=== PATIENT | female | born 1955 | race Caucasian/White ===

== ENCOUNTER → 2020-11-17 06:55 | Outpatient (CLI) | payer MEDICARE, SELFPAY ==
--- NOTE | ~2020-11-17 | MR_ITS ---
EXAMINATION: MR shoulder RT wo con DATE: 11/17/2020 07:34 INDICATION: Shoulder weakness and pain TECHNIQUE: Magnetic resonance imaging (MRI) of the right shoulder was performed without intravenous c ontrast. Sequences included axial PD-weighted FS FSE, coronal oblique PD-weighted FS FSE, coronal obl ique T2-weighted FS FSE, sagittal PD-weighted FS FSE, and sagittal T1-weighted SE. COMPARISON: None. FINDINGS: Coracoacromial arch: The acromion undersurface is curved in morphology (type II). The coracoacromial ligament is normal. M ild acromioclavicular osteoarthritis. Rotator cuff: Moderate infraspinatus and mild supraspinatus tendinopathy with partial-thickness articular sided tea r along the superior facet footplate of the supraspinatus involving up to one half of two thirds of t he tendon thickness. The tear measures approximately 12 mm AP and with some retraction of the torn ar ticular sided fibers resulting in attenuation of the distal 1 cm of the tendon. The tear extends ante riorly across the rotator cuff interval to involve the majority of the lesser tuberosity footplate of the subscapularis tendon. The inferior most muscular attachment of the subscapularis remains intact as well as small portion of the articular side of the tendon which remains attached to the medial rim of the lesser tuberosity. The bursal side of the tendon remains intact and contiguous with the intac t transverse humeral ligament extending across the intertubercular groove. The long head of the bicep s tendon is subluxed across the lesser tuberosity tear defect and an additional 1 cm medially along a longitudinal split tear plane positioned between the intact bursal and articular sided fibers. The s plit tear extends approximately 2.5 cm medially from the midpoint of the lesser tuberosity. There is thickening of the crescentic rotator cable. The teres minor tendon is normal. There is mild to modera te fatty atrophy of the subscapularis muscle belly. Biceps tendon, glenoid labrum and glenohumeral cartilage: Moderate tendinopathy and longitudinal split tearing of the subluxed long head biceps tendon. The ant erior to anteroinferior glenoid labrum is thickened with irregular intrasubstance increased signal co nsistent with degenerative tearing. There is mild cystic change along the underlying anterior rim of the glenoid at approximately the 4:00 position. Likely small tear at the posterior superior glenoid l abrum. There is mild partial-thickness cartilage loss along the glenoid and humeral head with relativ michael smooth chondral surface. Small marginal osteophytes along the inferior humeral head. Fluid: Physiologic amount of fluid in the glenohumeral joint and biceps tendon sheath. No loose osteochondra l bodies. Fluid in the subacromial/subdeltoid bursa consistent with moderate bursitis. Bones: Bone alignment is normal. No fracture or pathologic marrow replacing process. Additional cystic mccormick e at the greater tuberosity underlying the posterior extent of the supraspinatus tendon tear. IMPRESSION: 1. Mild to moderate rotator cuff tendinopathy with partial-thickness articular sided tear of the dist al supraspinatus tendon. 2. Tear involving the majority of the lesser tuberosity footplate of the subscapularis tendon with me dially projecting split tear between the remaining intact articular and bursal sided portion of the t endon. 3. Secondary medial subluxation of the long head biceps tendon across the lesser tuberosity tear defe ct with moderate tendinopathy and longitudinal split tearing of the long head biceps tendon. 4. Mild glenohumeral osteoarthritis with prominent degenerative tearing of the anterior to anteroinfe rior labrum and likely mild tear at the posterior superior labrum. 5. Mild acromion clavicular osteoarthritis with moderate underlying subacromial/subdeltoid bursitis.
== END ==
PROVIDERS: Visit Provider Orthopaedic Surgery
DX: M19.011 Primary osteoarthritis, right shoulder (principal)
CPT/HCPCS: 73221

== ENCOUNTER 2021-01-22 14:10 | Outpatient (CLI) | payer MEDICARE, SELFPAY ==
--- NOTE | 2021-01-22 14:15 | ECG_ITS ---
Measurements Intervals [place] Rate: 72 P: 62 OR: 169 QRS: 36 QRSD: 88 T: 50 QT: 391 QTc: 429 Interpretive Statements SINUS RHYTHM BASELINE ARTIFACT- I, II, III, AVR, AVL,A VF, V5 NORMAL ECG Electronically Signed On 01-22-2021 14:52:29 CDT by Candelario Steele D.O.
== END 2021-01-22 14:11 | disposition home or self-care (01) ==
PROVIDERS: PCP Family Medicine; Visit Provider Orthopaedic Surgery
DX: M75.101 Unspecified rotator cuff tear or rupture of right shoulder, not specified as traumatic (principal); E78.2 Mixed hyperlipidemia; Z01.818 Encounter for other preprocedural examination
CPT/HCPCS: 87070; 87077; 87147; 87181; 87186; 93005

== ENCOUNTER → 2021-01-29 05:09 | Outpatient (CLI) | payer MEDICARE, SELFPAY ==
[2021-01-29 19:22] LABS: SARS-CoV-2 RNA PCR Negative
== END ==
PROVIDERS: PCP Family Medicine; Visit Provider Orthopaedic Surgery
DX: Z01.812 Encounter for preprocedural laboratory examination (principal); Z20.822 Contact with and (suspected) exposure to COVID-19
CPT/HCPCS: C9803; U0003; U0005

== ENCOUNTER 2021-02-01 01:55 | Day surgery (SDC) | payer MEDICARE, SELFPAY ==
[2021-01-22 13:45] VITALS: BMI 24.0
--- NOTE | 2021-01-29 07:55 | PM.IMHP ---
H&P: HPI History of Present Illness Date/Time: 01/29/21 07:55 65-year-old female patient presents today for arthroscopy of her right shoulder with open rotator cuff repair and possible biceps tenodesis. She started having symptoms in her shoulder last fall. 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 She started having symptoms after doing this. She does not recall any specific injury or trauma. She was initially evaluated in October of this year. After initial evaluation she was sent for an MRI because of weakness in the shoulder. MRI scan did show tearing of the upper border of the subscap tendon as well as subluxation of the biceps tendon. She also had partial-thickness tearing of the supraspinatus tendon as well. She was initially treated with anti-inflammatories as well as formal physical therapy. She continues have significant symptoms of that in the bases. Surgical option was discussed with the patient and she feels that symptoms have been going on long enough and have not improved nonsurgical treatment and would rather proceed with surgery at this point. <CELESTINA Johnson - Last Filed: 01/29/21 08:02> Chief Complaint: right shoulder roator cuff tear with dislocation of biceps tendon <CELESTINA Johnson - Last Filed: 01/29/21 08:02> Review of Systems Review of Systems: All systems reviewed & are unremarkable except as noted in HPI and below <CELESTINA Johnson - Last Filed: 01/29/21 08:02> [facility] Past Medical History Medical History: Medical History Anxiety GERD without esophagitis Mixed hyperlipidemia Osteopenia <CELESTINA Johnson - Last Filed: 01/29/21 08:02> Surgical History Surgical History: Surgical History History of arthroscopy of knee (~2019) Hx of colonoscopy (~2019) <CELESTINA Johnson - Last Filed: 01/29/21 08:02> Family History Family History: Family History Mother Diabetes mellitus <CELESTINA Johnson - Last Filed: 01/29/21 08:02> Social History Social History: Social History Smoking packs per day: 0.5 Smoking cigarettes per day: 10.0 Years smoked: 30 Smoking pack-years: 15.00 Smoking status: Never smoker Tobacco type: cigarettes Second hand tobacco smoke exposure: No Smoking end date: 10/30/16 Alcohol intake: never Living arrangements: with family Spiritual care concerns: No <CELESTINA Johnson - Last Filed: 01/29/21 08:02> Meds Home Medications and Allergies Home medications: Home Medications Medication Instructions Recorded Confirmed Type bfusyuaadari-drdvvfcx-yeiueg tablet 1 tablet PO DAILY 09/29/20 02/01/21 History cholecalciferol (vitamin D3) 50 50 mcg PO DAILY 11/10/20 02/01/21 History mcg (2,000 unit) capsule lansoprazole 15 mg capsule,delayed 15 mg PO DAILY #90 cap 11/10/20 02/01/21 Rx release fluoxetine 20 mg capsule See Rx Instructions .ROUTE 12/16/20 02/01/21 Rx .COMPLEX #90 cap ascorbic acid (vitamin C) 1 g PO DAILY 01/22/21 02/01/21 History calcium carbonate-vitamin D3 1 tablet PO DAILY 01/22/21 02/01/21 History [Caltrate with Vitamin D3] coQ10 (ubiquinol) 100 mg PO DAILY 01/22/21 02/01/21 History naproxen sodium [Aleve] 440 mg PO BID 01/22/21 02/01/21 History omega-3 fatty acids-fish oil [Fish 1 cap PO QPM 01/22/21 02/01/21 History Oil] rosuvastatin 10 mg PO QPM 01/22/21 02/01/21 History alprazolam 0.25 mg tablet 0.25 mg PO TID PRN #90 tablet 01/27/21 Rx fenofibrate 160 mg tablet 160 mg PO DAILY #90 tablet 01/27/21 Rx <CELESTINA Johnson - Last Filed: 01/29/21 08:02> Allergies/Adverse reactions: Allergies Allergy/AdvReac Type Severity Reaction Status Date / Time amoxicillin Allergy Severe ANAPHALXIS Verified
[2021-02-01] VITALS (11 sets, daily range): BP systolic 121–158; BP diastolic 59–87; PULSE 81–125; RESP 12–16; TEMP 36.1–36.2; O2SAT 95–100
[2021-02-01] MEDS: LACTATED RINGERS 1,000 ML 30 ML IV CONT ×2 (06:30→10:46)
[2021-02-01] MEDS: KETOROLAC 15 MG/ML VIAL (*BKC) IV PUSH (06:34)
[2021-02-01] MEDS: ACETAMINOPHEN 500 MG TABLET 1000 MG PO (06:35)
--- NOTE | 2021-02-01 07:09 | WPDANESEPPF ---
Anes - Initial Pre Proc Eval Procedure: Operation Date: 02/01/21 07:30 Proposed Procedures p Right Shoulder Arthroscopy, Open Rotator Cuff Repair, Probable Biceps Tenodesis Versus Tenotomy, Possible Arthrex Acellular Dermal Allograft - Michael Garrison MD Date/Time: 02/01/21 07:09 Surgeon: Michael Garrison MD Pre Op Diagnosis: Rt rotator cuff tear, Patient Data Age: 65 Gender: F Height: 5 ft 4 in Weight: 65.4 kg Last Vital Signs Temp 36.2 C L 02/01/21 06:11 Pulse 81 02/01/21 06:11 Resp 16 02/01/21 06:11 BP 121/59 L 02/01/21 06:11 Pulse Ox 100 02/01/21 06:11 Allergies Allergy/AdvReac Type Severity Reaction Status Date / Time amoxicillin Allergy Severe ANAPHALXIS Verified 02/01/21 06:45 Cephalosporins Allergy Severe ANAPHALAXIS Verified 02/01/21 06:45 Penicillins Allergy Severe ANAPHALAXIS Verified 02/01/21 06:45 cefuroxime Allergy Unknown Unknown Verified 02/01/21 06:45 Home Medications Medication Instructions Recorded Confirmed Type uocvigvyqtvx-fuatuucp-bnfjgb tablet 1 tablet PO DAILY 09/29/20 02/01/21 History cholecalciferol (vitamin D3) 50 50 mcg PO DAILY 11/10/20 02/01/21 History mcg (2,000 unit) capsule lansoprazole 15 mg capsule,delayed 15 mg PO DAILY #90 cap 11/10/20 02/01/21 Rx release fluoxetine 20 mg capsule See Rx Instructions .ROUTE 12/16/20 02/01/21 Rx .COMPLEX #90 cap ascorbic acid (vitamin C) 1 g PO DAILY 01/22/21 02/01/21 History calcium carbonate-vitamin D3 1 tablet PO DAILY 01/22/21 02/01/21 History [Caltrate with Vitamin D3] coQ10 (ubiquinol) 100 mg PO DAILY 01/22/21 02/01/21 History naproxen sodium [Aleve] 440 mg PO BID 01/22/21 02/01/21 History omega-3 fatty acids-fish oil [Fish 1 cap PO QPM 01/22/21 02/01/21 History Oil] rosuvastatin 10 mg PO QPM 01/22/21 02/01/21 History alprazolam 0.25 mg tablet 0.25 mg PO TID PRN #90 tablet 01/27/21 Rx fenofibrate 160 mg tablet 160 mg PO DAILY #90 tablet 01/27/21 Rx Patient hx anesthesia problems: none Family hx anesthesia problems: none PMFSH Past Medical History Medical History Anxiety GERD without esophagitis Mixed hyperlipidemia Osteopenia Surgical History Surgical History History of arthroscopy of knee (~2018) Hx of colonoscopy (~2018) Family History Family History Mother Diabetes mellitus Social History Social History Smoking packs per day: 0.5 Smoking cigarettes per day: 10.0 Years smoked: 30 Smoking pack-years: 15.00 Smoking status: Never smoker Tobacco type: cigarettes Second hand tobacco smoke exposure: No Smoking end date: 10/30/16 Alcohol intake: never Living arrangements: with family Spiritual care concerns: No Anes - Eval Final PreProcedure Day of Procedure 02/01/21 07:09 Last oral intake: >/= 8 hours ASA classification: II Emergent: no Anesthetic plan: proceed Anesthesia type and monitoring: general ETT and standard monitoring Informed Consent: The patient's anesthetic plan and its attendant risks and benefits were discussed with the patient/family/POA. Questions were solicited and answers provided to the satisfaction of the patient/family/POA.
--- NOTE | 2021-02-01 07:22 | WPDHPUPDATE1 ---
History and Physical Update Update Date/Time: 02/01/21 07:22 History and Physical has been reviewed, including an updated exam of the patient. There are NO changes in the patient's condition. Risks, benefits, and alternatives have been discussed and questions answered. Patient agrees to proceed with procedure. Biceps tenotomy vs tenodesis and possible augmentataion tissue patch discussed.
[2021-02-01] MEDS: AZTREONAM 2 GM in DEXTROSE 5% 100 ML IVPB (07:34)
--- NOTE | 2021-02-01 07:45 | WPDANESPNB ---
Anes - Peripheral Nerve Block Date/Time: 02/01/21 07:45 I have discussed with the patient/family/POA the placement of a peripheral nerve block for post-operative pain management, including associated risks, benefits, complications, and side effects. Alternative methods of post-operative analgesia were detailed. Questions were solicited and answers provided to the satisfaction of the patient/family/POA. Time-Out: A pre-procedural Time-Out was completed immediately before starting the procedure and confirmed: Patient Identification, Site, Procedure, Patient Position and the Availability of Requisite Equipment. Clinical Indications: Acute post-operative pain management requested by the operative surgeon. Nerve Block Insertion Note Anes-nerve block: interscalene right Patient position: supine Skin prep: duraprep Needle: 22 gauge, stimulating, insulated echogenic needle. Needle length: 50 mm Technique: ultrasound Injectate: bupivacaine 0.5% with epi 5 mcg/ml (30) and dexamethasone (mg) (4) Observations: tolerated well Complications: none Procedure start time:: 727 Procedure end time:: 733
--- NOTE | 2021-02-01 10:26 | PM.PROC ---
Procedure Note - Detailed Date of procedure: 02/01/21 Pre-op diagnosis: Rt rotator cuff tear, Tearing right rotator cuff upper subscapularis with dislocation of long head of biceps, supraspinatus and upper infraspinatus tendons. Post-op diagnosis: same Procedure performed: Arthroscopic limited debridement of biceps stump after arthroscopically assisted biceps tenodesis, open rotator cuff tear subscapularis infraspinatus and supraspinatus tendons. Description of procedure: Patient was brought to the operating room and general anesthesia was administered. She was placed in the beach chair position the head secured in neutral alignment and the right shoulder prepped draped usual fashion. She had history of allergy to penicillins and cephalosporins causing anaphylaxis. She was given 1 g of vancomycin and 2 g of he is treating him preoperatively and the right shoulder prepped and draped usual fashion. All the skin was covered with Ioban except the superior portion. A posterior portal was placed. There was extensive fraying of the undersurface of the long head of the biceps. Superior labrum was frayed in these areas were gently debrided with motorized shaver through an anterior superior portal. The articular surfaces were in good condition. There was a large tear involving the supraspinatus and infraspinatus tendons. It looked like it was full thickness. However we placed the arthroscope in the subacromial space we could see that there is still a thin membrane of bursal side tendon attached. With the arthroscope in the shoulder joint the subscapularis was visualized but it did not have the usual rolled border consistent with known avulsion from the lesser tuberosity but remaining attachment to the lateral bicipital ridge. The long head of the biceps from id and groove. With the arthroscope in the subacromial space there was just a little bit of hypertrophic bursal tissue. We left the undersurface of the acromion alone based on her smooth anterior acromial morphology based on previous MRI scan. Remaining skin was covered with Ioban outer gloves changed. A 2 in longitudinal incision was made from the anterior superior acromion over the anterolateral shoulder in the interval between the anterior and middle heads of the deltoid was identified in the tendon this Adrian a incised for a split of 4 cm. To optimize exposure and facilitate repair of the subscapularis, we elevated approximately 8 mm of anterior deltoid off anterior acromion. This was done while maintaining the continuity with the tissue on the superior acromion. Self-retaining retractor was placed and there was no full-thickness rotator cuff as we saw on the subacromial space arthroscopic view. There was membrane Flick thin to be translucent about 1 cm in width at junction of posterior supraspinatus and upper infraspinatus and this was released with the pickups. Further debridement gave us a tear that was about all 2 cm in width. The anterior adrienne at the anterior aspect of the supraspinatus was still intact as was the rotator cuff interval and the subscapularis showed no tear but we could feel the long of the biceps dislocated resting on the lesser tuberosity. There was high-grade partial tearing of the infraspinatus just posterior to the now created full-thickness tear and we carefully prepared the entire greater tuberosity footprint for lesser and upper infraspinatus leaving a bleeding bone surface devoid of soft tissue attachments we did this with a clean 15 blade scalpel and 2 mm bur making numerous dimples. We then turned our attention to the dislocated biceps. We incised the bicipital groove aponeurosis and proximally incised the rotator cuff interval for a distance of about 15 mm from the entrance the bicipital groove leaving the anterior cable intact. We were able to use a nerve hook to retrieve the dislocated long head of the biceps and was extremely macerated at the top edge of the bicipital groove and the
== END 2021-02-01 13:22 | disposition home or self-care (01) ==
PROVIDERS: PCP Family Medicine; Visit Provider Orthopaedic Surgery
PROC: (CPT 29805; principal; 2021-02-01 07:30)
DX: M75.101 Unspecified rotator cuff tear or rupture of right shoulder, not specified as traumatic (principal); S43.391A Subluxation of other parts of right shoulder girdle, initial encounter; F41.9 Anxiety disorder, unspecified; K21.9 Gastro-esophageal reflux disease without esophagitis; E78.2 Mixed hyperlipidemia; Z87.891 Personal history of nicotine dependence
CPT/HCPCS: 29828; 23412; 87070; 87077; 87147; 87181; 87186; 93005; A4565; A9270; C9803; J0330; J1100; J1170; J1885; J2250; J2405; J2704; J3010; J3370; J7120; U0003; U0005

== ENCOUNTER → 2021-04-19 07:23 | Outpatient (CLI) | payer MEDICARE, SELFPAY ==
--- NOTE | ~2021-04-19 | MM_ITS ---
EXAMINATION: MM screening [place] BI w abel HISTORY: Screening mammogram TECHNIQUE: Craniocaudal and mediolateral oblique 3-D tomosynthesis images were obtained and synthetic 2-D images were generated. CAD analysis was submitted and interpreted. COMPARISON: 10/16/2018, 09/18/2017 bilateral digital screening mammogram examinations BREAST PARENCHYMAL COMPOSITION: There are scattered areas of fibroglandular density. FINDINGS: There is an asymmetric 4 mm opacity at mid depth lower outer right breast (craniocaudal Omar osynthesis image 28/63; MLO Tomosynthesis image 14/63). Diagnostic right mammogram and right breast u ltrasound examination are recommended. Otherwise there is no evidence of suspicious mass, calcification, or architectural distortion to sugg est malignancy in either breast. There has been no other suspicious interval change. IMPRESSION: 1. 4 mm asymmetric opacity in the lower outer right breast 2. Diagnostic right mammogram and right breast ultrasound examination are recommended. BI-RADS Category 0: Incomplete: Needs additional imaging evaluation. Reviewed, dictated and finalized at location A. IMPRESSION: 1. 4 mm asymmetric opacity in the lower outer right breast 2. Diagnostic right mammogram and right breast ultrasound examination are recom mended. BI-RADS Category 0: Incomplete: Needs additional imaging evaluation.
== END ==
PROVIDERS: PCP Family Medicine; Visit Provider Nurse Practitioner Family
DX: Z12.31 Encounter for screening mammogram for malignant neoplasm of breast (principal); R92.8 Other abnormal and inconclusive findings on diagnostic imaging of breast
CPT/HCPCS: 77063; 77067

== ENCOUNTER → 2021-05-18 08:46 | Outpatient (CLI) | payer MEDICARE, SELFPAY ==
--- NOTE | ~2021-05-18 | MMUS_ITS ---
EXAMINATION: MM diagnostic mammo unilat RT, US breast RT limited HISTORY: Follow-up right breast asymmetry TECHNIQUE: Additional 3-D tomosynthesis images of the right breast were performed and synthetic 2-D i mages were generated. CAD analysis was submitted and interpreted. High resolution right breast ultras ound was performed. COMPARISON: 04/19/2021 BREAST PARENCHYMAL COMPOSITION: Breast composed of scattered areas of fibroglandular density. FINDINGS: MAMMOGRAPHIC FINDINGS: Breast composed of scattered areas of fibroglandular density. There are no suspicious masses, calcifi cations or architectural distortion in the right breast to suggest malignancy. ULTRASOUND: Amended right breast ultrasound: At 7:00, 4 cm from the nipple there is a 2 mm cyst. No other discret e solid or cystic mass. IMPRESSION: 1. No evidence for malignancy in the right breast. 2. Routine yearly screening mammogram and regular clinical breast examination are recommended. BI-RADS Category 2: Benign finding(s). Reviewed, dictated and finalized at location A. IMPRESSION: 1. No evidence for malignancy in the right breast. 2. Routine yearly screening mammogram and regular clinical breast examination a re recommended. BI-RADS Category 2: Benign finding(s).
== END ==
PROVIDERS: PCP Family Medicine; Visit Provider Nurse Practitioner Family
DX: R92.8 Other abnormal and inconclusive findings on diagnostic imaging of breast (principal)
CPT/HCPCS: 76642; 77065

== ENCOUNTER → 2022-01-18 13:11 | Outpatient (CLI) | payer MEDICARE, SELFPAY ==
--- NOTE | ~2022-01-18 | DEXA_ITS ---
Bone Density Report Name: JUAN CARLOS NORTON Age: 66 Sex: Female Ethnicity: White Date of : 1955 Indication: osteopenia; postmenopausal Referring Provider: Morenita Soliman Study: Bone densitometry was performed. Exam Date: January 18, 2022 Accession number: [id number] Bone Density: Region BMD T-score Z-score Classification AP Spine (L1-L4) 0.939 -1.0 0.9 Normal Femoral Neck (Left) 0.737 -1.0 0.6 Normal Total Hip (Left) 0.839 -0.8 0.5 Normal Femoral Neck (Right) 0.877 0.3 1.9 Normal Total Hip (Right) 0.863 -0.6 0.7 Normal Total Hip Mean 0.851 -0.7 0.6 Normal World Health Organization criteria for BMD impression classify patients as: Normal (T-score at or above -1.0), Osteopenia (T-score between -1.0 and -2.5), or Osteoporosis (T-score at or below -2.5). 10-year Fracture Risk: FRAX not reported because: All T-scores for Spine Total, Hip Total, Femoral Neck at or above -1.0 Previous Exams: Region Exam Age BMD T-score BMD Change BMD Change Date g/cm2 vs Baseline vs Previous AP Spine(L1-L4) 01/18/2022 66 0.939 -1.0 -0.039* 0.014 08/20/2019 63 0.926 -1.1 -0.053* -0.029* 08/22/2016 60 0.955 -0.8 -0.024* -0.034* 01/23/2013 57 0.988 -0.5 0.010 0.022 09/30/2009 54 0.966 -0.7 -0.012 -0.014 06/20/2007 51 0.981 -0.6 0.002 0.002 06/10/2005 49 0.979 -0.6 Total Hip(Left) 01/18/2022 66 0.839 -0.8 -0.159* 0.015 08/20/2019 63 0.824 -1.0 -0.174* -0.080* 08/22/2016 60 0.904 -0.3 -0.094* 0.005 01/23/2013 57 0.899 -0.4 -0.099* -0.091* 09/30/2009 54 0.990 0.4 -0.007 0.083* 06/20/2007 51 0.908 -0.3 -0.090* -0.090* 06/10/2005 49 0.998 0.5 Total Hip(Right) 01/18/2022 66 0.863 -0.6 -0.104* 0.073* 08/20/2019 63 0.790 -1.2 -0.177* -0.098* 08/22/2016 60 0.888 -0.4 -0.078* 0.014 01/23/2013 57 0.874 -0.6 -0.092* -0.089* 09/30/2009 54 0.963 0.2 -0.003 0.023 06/20/2007 51 0.940 0.0 -0.027 -0.027 06/10/2005 49 0.967 0.2 *Denotes significance at 95% confidence level, LSC for AP Spine = 0.022 g/cm2, LSC for Total Hip = 0.027 g/cm2 Clinical Information Provided by Patient: Has used the following medications: Vitamin D, Ca
== END ==
PROVIDERS: PCP Family Medicine; Visit Provider Nurse Practitioner Family
DX: Z78.0 Asymptomatic menopausal state (principal)
CPT/HCPCS: 77080

== ENCOUNTER 2022-10-11 08:47 | Outpatient (CLI) | payer MEDICARE, SELFPAY ==
[2022-10-11 20:04] LABS: Kit Draw Collected
== END 2022-10-11 08:48 | disposition home or self-care (01) ==
LOC: ANHGOSHLAB 08:49
PROVIDERS: PCP Family Medicine; Visit Provider Family Medicine
DX: E78.2 Mixed hyperlipidemia (principal)
CPT/HCPCS: 36415

== ENCOUNTER → 2023-01-03 11:52 | Outpatient (CLI) | payer MEDICARE, SELFPAY ==
--- NOTE | ~2023-01-03 | MM_ITS ---
EXAMINATION: MM screening [facility] BI w abel HISTORY: Screening mammogram TECHNIQUE: Craniocaudal and mediolateral oblique 3-D tomosynthesis images were obtained and synthetic 2-D images were generated. CAD analysis was submitted and interpreted. COMPARISON: 05/18/2021, 04/19/2021, 10/16/2018 BREAST PARENCHYMAL COMPOSITION: There are scattered areas of fibroglandular density. FINDINGS: No suspicious mass, calcification, or architectural distortion are identified in either mark ast to suggest malignancy. There has been no suspicious interval change. IMPRESSION: 1. No mammographic evidence of malignancy. 2. Recommend routine screening mammography in one year. BI-RADS Category 1: Negative Reviewed, dictated and finalized at location A. ERCIAL ESTIMATOR
== END ==
PROVIDERS: PCP Family Medicine; Visit Provider Nurse Practitioner Family
DX: Z12.31 Encounter for screening mammogram for malignant neoplasm of breast (principal)
CPT/HCPCS: 77063; 77067

== ENCOUNTER 2023-04-11 14:23 | Outpatient (CLI) | payer MEDICARE, SELFPAY ==
[2023-04-11 16:58] LABS: Alanine Aminotransferase 24 U/L (6-35); Albumin Level 4.7 g/dL (3.5-5.1); Alkaline Phosphatase 71 U/L (38-126); Anion Gap 8 mmol/L (8-16); Aspartate Amino Transferase 55 U/L (14-36); Bilirubin,Total 0.4 mg/dL (0.2-1.3); Blood Urea Nitrogen 17 mg/dL (7-17); Calcium 9.5 mg/dL (8.4-10.2); Carbon Dioxide 27 mmol/L (22-30); Chloride 105 mmol/L (98-107); Estimated Glomerular Filt Rate > 60; Glucose 77 mg/dL (65-110); Potassium 3.7 mmol/L (3.4-5.0); Sodium 140 mmol/L (137-145)
== END 2023-04-11 14:24 | disposition home or self-care (01) ==
LOC: ANHGOSHLAB 14:23
PROVIDERS: PCP Family Medicine; Visit Provider Family Medicine
DX: E78.2 Mixed hyperlipidemia (principal); Z79.899 Other long term (current) drug therapy
CPT/HCPCS: 36415; 80053

== ENCOUNTER 2023-10-12 10:14 | Outpatient (CLI) | payer MEDICARE, SELFPAY ==
[2023-10-12 20:24] LABS: Vitamin D 25 Hydroxy 89.6 ng/mL
[2023-10-12 20:33] LABS: Basophils Percent Auto 0.5 % (0.2-1.2); Eosinophils Absolute Auto 0.1 K/mm3 (0-0.3); Eosinophils Percent Auto 1.4 % (0-4.4); Hematocrit 40.1 % (37.0-47.0); Immature Granulocyte Absolute 0.01 K/mm3 (0.00-0.031); Immature Granulocyte Percent A 0.2 % (0-0.5); Lymphocytes Absolute Auto 1.95 K/mm3 (0.9-3.2); Lymphocytes Percent Auto 34.9 % (18.3-44.2); Mean Corpuscular HGB Conc 32.4 g/dl (32-36); Mean Corpuscular Hemoglobin 29.1 pg (26-34); Mean Corpuscular Volume 89.7 fl (80-100); Mean Platelet Volume 11.2 fl (7.4-10.4); Monocytes Absolute Auto 0.4 K/mm3 (0.1-0.6); Monocytes Percent Auto 7.3 % (2.6-8.5); Neutrophils Absolute Auto 3.1 K/mm3 (1.3-6.7); Neutrophils Percent Auto 55.7 % (45.5-73.1); Platelet Count Result 339 k/mm3 (150-375); Red Blood Count 4.47 M/mm3 (4.2-5.4); Red Cell Distribution Width 13.9 % (11.5-14.5); White Blood Count 5.6 K/mm3 (4.5-10.0)
[2023-10-12 21:28] LABS: Alanine Aminotransferase 18 U/L (6-35); Albumin Level 4.5 g/dL (3.5-5.1); Alkaline Phosphatase 66 U/L (38-126); Anion Gap 7 mmol/L (8-16); Aspartate Amino Transferase 34 U/L (14-36); Bilirubin,Total 0.6 mg/dL (0.2-1.3); Blood Urea Nitrogen 20 mg/dL (7-17); Carbon Dioxide 27 mmol/L (22-30); Chloride 106 mmol/L (98-107); Cholesterol 137 mg/dL (0-200); Estimated Glomerular Filt Rate > 60; Glucose 82 mg/dL (65-110); HDL Direct 57 mg/dL; Sodium 140 mmol/L (137-145); Triglycerides 79 mg/dL (<150)
[2023-10-12 21:40] LABS: LDL Cholesterol Direct 54 mg/dL
== END 2023-10-12 10:15 | disposition home or self-care (01) ==
LOC: ANHGOSHLAB 10:16
PROVIDERS: PCP Family Medicine; Visit Provider Family Medicine
DX: E55.9 Vitamin D deficiency, unspecified (principal); E78.5 Hyperlipidemia, unspecified; I10 Essential (primary) hypertension; E53.8 Deficiency of other specified B group vitamins; Z00.00 Encounter for general adult medical examination without abnormal findings
CPT/HCPCS: 36415; 80053; 80061; 82306; 82607; 85025

== ENCOUNTER 2024-01-29 14:11 | Outpatient (CLI) | payer MEDICARE, SELFPAY ==
--- NOTE | ~2024-01-29 | CT_ITS ---
CT Scan of the Chest without Contrast: Clinical Indication: Lung cancer screening, nicotine dependence Technique: Contiguous sections were acquired throughout the chest without intravenous contrast. Dose reduction technique was used on this scan by utilizing automated exposure control and iterative recon struction technique. The dose-length product (DLP) was 89.43 mGy-cm. Findings: There is no evidence of any significant mediastinal, hilar or axillary lymphadenopathy. Coronary iraida ry calcifications are present. There is no evidence of pleural or pericardial effusion. Subcentimeter right perifissural nodules are present. 3 mm right basilar pulmonary nodule present. 2 mm left lower lobe pulmonary nodule present along the fissure. 3 mm left upper lobe pulmonary nodule present along the fissure. Images through the upper abdomen reveal no abnormalities. Impression: Lung RADS 2: Benign appearance. 12 month follow-up screening CT advised. Reviewed, dictated and finalized at [facility] [place]. Impression: Lung RADS 2: Benign appearance. 12 month follow-up screening CT advised.
--- NOTE | ~2024-01-29 | MM_ITS ---
EXAMINATION: MM screening [facility] BI w abel HISTORY: Screening TECHNIQUE: Craniocaudal and mediolateral oblique 3-D tomosynthesis images were obtained and synthetic 2-D images were generated. CAD analysis was submitted and interpreted. COMPARISON: Comparison to multiple prior studies sequentially, with oldest reviewed study dated 04/19. BREAST PARENCHYMAL COMPOSITION: There are scattered areas of fibroglandular density. FINDINGS: There is no evidence of suspicious mass, calcification, or architectural distortion to sugg est malignancy in either breast. There has been no suspicious interval change. IMPRESSION: 1. No mammographic evidence of malignancy. 2. Recommend routine screening mammography in one year. BI-RADS Category 1: Negative Reviewed, dictated and finalized at location A.
== END 2024-01-29 14:12 ==
LOC: MICIMG 14:12
PROVIDERS: PCP Family Medicine; Visit Provider Family Medicine
DX: Z12.31 Encounter for screening mammogram for malignant neoplasm of breast (principal); Z12.2 Encounter for screening for malignant neoplasm of respiratory organs; Z87.891 Personal history of nicotine dependence
CPT/HCPCS: 71271; 77063; 77067

== ENCOUNTER 2024-06-17 15:33 | Outpatient (CLI) | payer MEDICARE, SELFPAY ==
[2024-06-17 15:59] LABS: Basophils Absolute Auto 0.1 K/mm3 (0.0-0.1); Basophils Percent Auto 0.7 % (0.2-1.2); Eosinophils Absolute Auto 0.2 K/mm3 (0-0.3); Eosinophils Percent Auto 2.1 % (0-4.4); Hematocrit 39.5 % (37.0-47.0); Hemoglobin 12.8 g/dL (12.0-15.0); Immature Granulocyte Absolute 0.02 K/mm3 (0.00-0.031); Immature Granulocyte Percent A 0.3 % (0-0.5); Lymphocytes Absolute Auto 2.69 K/mm3 (0.9-3.2); Mean Corpuscular HGB Conc 32.4 g/dl (32-36); Mean Corpuscular Hemoglobin 29.1 pg (26-34); Mean Corpuscular Volume 89.8 fl (80-100); Mean Platelet Volume 10.8 fl (7.4-10.4); Monocytes Absolute Auto 0.6 K/mm3 (0.1-0.6); Monocytes Percent Auto 8.1 % (2.6-8.5); Neutrophils Absolute Auto 4.1 K/mm3 (1.3-6.7); Neutrophils Percent Auto 53.8 % (45.5-73.1); Platelet Count Result 325 k/mm3 (150-375); Red Cell Distribution Width 13.8 % (11.5-14.5); White Blood Count 7.7 K/mm3 (4.5-10.0)
[2024-06-17 16:01] LABS: Add Urine Microscopic? NO; Appearance Urine Clear (Clear); Bilirubin Urine Negative (Negative); Blood Urine Negative (Negative); Color Urine Yellow (Yellow); Glucose Urine UA Negative (Negative); Ketones Urine Negative (Negative); Leukocyte Esterase Ur Negative LEU/UL (Negative); Nitrate Urine Negative (Negative); Protein Urine Negative (Negative); Specific Grav Ur 1.008 (1.001-1.035); Urobilinogen Urine 0.2 mg/dL (<2.0)
--- NOTE | 2024-06-17 16:08 | ECG_ITS ---
Test Date: 2024-06-17 16:15:28 Measurements Intervals [place] Rate: 70 P: 62 MA: 189 QRS: 55 QRSD: 91 T: 60 QT: 406 QTc: 438 Interpretive Statements SINUS RHYTHM No previous ECG available for comparison Electronically Signed On 06-18-2024 10:16:25 CDT by Cherise Lilly M.D.
[2024-06-17 16:30] LABS: Alanine Aminotransferase 26 U/L (6-35); Albumin Level 4.6 g/dL (3.5-5.1); Alkaline Phosphatase 67 U/L (38-126); Anion Gap 12 mmol/L (4-12); Aspartate Amino Transferase 36 U/L (14-36); Bilirubin,Total 0.4 mg/dL (0.2-1.3); Blood Urea Nitrogen 20 mg/dL (7-17); Calcium 10.7 mg/dL (8.4-10.2); Carbon Dioxide 25 mmol/L (22-30); Chloride 103 mmol/L (98-107); Estimated Glomerular Filt Rate > 60; Glucose 102 mg/dL (65-110); Potassium 4.3 mmol/L (3.4-5.0); Sodium 140 mmol/L (137-145)
== END 2024-06-17 15:34 | disposition home or self-care (01) ==
LOC: ANHLAB 15:40
PROVIDERS: PCP Family Medicine; Visit Provider Family Medicine
DX: E78.2 Mixed hyperlipidemia (principal); F41.9 Anxiety disorder, unspecified; I10 Essential (primary) hypertension; K21.9 Gastro-esophageal reflux disease without esophagitis; R03.0 Elevated blood-pressure reading, without diagnosis of hypertension; Z01.810 Encounter for preprocedural cardiovascular examination
CPT/HCPCS: 36415; 80053; 81003; 84443; 85025; 93005

== ENCOUNTER 2024-06-27 11:54 | Outpatient (CLI) | payer MEDICARE, SELFPAY ==
[2024-06-27 13:51] LABS: Urine Cotinine NEGATIVE
[2024-06-27 15:45] LABS: Hemoglobin A1C 5.8 % (<5.7)
== END 2024-06-27 11:55 | disposition home or self-care (01) ==
PROVIDERS: PCP Family Medicine; Visit Provider Orthopaedic Surgery
DX: Z01.812 Encounter for preprocedural laboratory examination (principal); M16.11 Unilateral primary osteoarthritis, right hip
CPT/HCPCS: 80307; 83036; 86850; 86900; 86901; 87081

== ENCOUNTER 2024-07-08 01:18 | Day surgery (SDC) | payer MEDICARE, SELFPAY ==
[2024-06-27 12:16] VITALS: BP 142/81; PULSE 67; RESP 16; TEMP 36.8; O2SAT 99; BMI 26.4
--- NOTE | 2024-06-27 12:30 | PC.NURSE ---
Addendum entered by Danielle Paulino RN 06/27/24 12:38: Pt is stopping all vitamins, supplements and NSAIDS on 06/30/24 and verbalizes understanding. Original Note: Report to the Outpatient Waiting Room, entrance under the green pavilion located off [facility], at time __06:00am on date _07/08/24 . Planned Procedure Time: __07:30am .? Time changes happen often and if your time is changed the preop area will call you the afternoon before. - You and your visitor will be asked to self-screen and do not enter if you have any COVID symptoms. Please call surgeon if you need to reschedule. - A mask is optional within the hospital at this time. Patients may have clear liquids (water, carbonated beverages, clear teas, apple juice) until 3 hours prior to surgery (04:30am) with a maximum of 20 ounces. - No food from midnight until time of surgery and no smoking Take only the following medications with a SIP of water on the morning of surgery: ____ Fluoxetine. Tylenol and Alprazolam as needed DO NOT STOP ANY OF YOUR OTHER PRESCRIPTION MEDICATIONS PRIOR TO SURGERY EXCEPT THE FOLLOWING Medications to discontinue per physician __Holding all Vitamins, NSAIDS, supplements 7 days prior to Surgery per Dr Black. Date to take last dose____06/27/24 Please no make-up, nail hebrew, hairspray, perfume, deodorant, or body powder the day of surgery.? No jewelry (including any body piercings) or valuables the day of surgery, leave them at home.? Please take a shower or bath the night before, or the morning of, surgery with an antibacterial soap.? Wear comfortable, loose fitting clothing.? Children are encouraged to wear pajamas. - Jewelry must be removed prior to entering the operating room.? Rings and piercings that are not removed may be cut off. - The hospital will not accept responsibility for valuables.? - Please leave all valuables, including medications, at home the day of surgery. If you are going home after surgery, a licensed driver education instructor must drive you home.? - NO public transportation without another adult if you receive anesthesia. - We recommend that an adult stay with you for 24 hours following discharge. - We also recommend that you do not drive, make important decision, drink alcoholic beverages, or take any drugs that were not prescribed by your health care provider for at least 24 hours after your discharge time. For Pediatric surgeries, we recommend two adults accompany the child home. Follow any additional instructions given to you from your surgeon. Telephone instructions given to __patient and asked if any additional questions and then verbalized understanding. Patient advised to call surgeon office or pre surgery nurse liaison [phone] if any additional questions.
--- NOTE | 2024-07-05 11:35 | PM.IMHP ---
H&P: HPI History of Present Illness Date/Time: 07/05/24 11:35 Chief Complaint: Right hip DJD Narrative: A 68-year-old female patient of Dr. Smith who presents today for a right anterior total hip arthroplasty. Patient has been having pain in the right hip for approximately 2 years. It has progressively gotten worse. Most of her pain is across the anterior groin. She has pain with weight-bearing as well as most daily activities. At this point she is finding it very difficult to walk due to the pain. She has been taking Aleve as well as Tylenol through the day. Patient does have advanced osteoarthritis in the right hip at this point she feels she is ready proceed with total hip arthroplasty. Review of Systems Review of Systems: All systems reviewed & are unremarkable except as noted in HPI and below PMFSH Past Medical History Medical History Acquired pes planus of both feet Anxiety Arthritis of foot, left, degenerative GERD without esophagitis Injury of left foot including toes Mixed hyperlipidemia Osteoarthritis Osteopenia Vitamin D deficiency Surgical History Surgical History History of arthroscopy of knee (~2018) Hx of colonoscopy (~2018) Status post rotator cuff repair (~2020) Family History Family History Mother Diabetes mellitus Elevated LDL cholesterol level Father , lung cancer No problems noted. Sibling , MVC No problems noted. Sibling No problems noted. Social History Social History Smoking packs per day: 0.5 Smoking cigarettes per day: 10.0 Years smoked: 30 Smoking pack-years: 15.00 Smoking status: Former smoker Tobacco type: cigarettes Second hand tobacco smoke exposure: No Smoking end date: 01/09/18 Alcohol intake: current Substance use: never Substance use type: does not use Do You Feel Safe in your Home?: Yes Lack of Transportation: No Lack of Food: Never True Current Housing: Decline to Answer Concerned About Future Housing: Decline to Answer Difficulty Paying Gas/Electric Bills: Decline to Answer Difficulty Paying for Meds: Decline to Answer Currently Unemployed: Decline to Answer Education: Decline to Answer Difficulty w/ Childcare or Family Care: Decline to Answer Living arrangements: with family Additional living arrangements comments: Occupation/Education: 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 Gender identity (if verbalized by the patient): Female Sexual Orientation (if Verbalized by the Patient): Straight or Heterosexual Spiritual care concerns: No Agree to blood products: Yes Meds Home Medications and Allergies Home Medications Medication Instructions Recorded Confirmed Type hkdgpcpgqpmj-tlvnrdaf-arebua tablet 1 tablet PO DAILY 09/29/20 06/27/24 History cholecalciferol (vitamin D3) 50 50 mcg PO DAILY 11/10/20 06/27/24 History mcg (2,000 unit) capsule ascorbic acid (vitamin C) 1,000 mg 1 g PO DAILY 01/22/21 06/27/24 History tablet calcium carbonate 600 mg-vitamin 1 tablet PO DAILY 01/22/21 06/27/24 History D3 20 mcg (800 unit) tablet (Caltrate with Vitamin D3) coQ10 (ubiquinol) 100 mg capsule 100 mg PO DAILY 01/22/21 06/27/24 History acetaminophen 500 mg tablet 1,000 mg PO .PRN 10/05/21 06/27/24 History (Tylenol Extra Strength) naproxen sodium 220 mg tablet 220 mg PO BID PRN hip 10/12/23 06/27/24 History (Aleve) fluoxetine 20 mg capsule 20 mg PO DAILY #90 caps 01/29/24 06/27/24 Rx omeprazole 20 mg capsule,delayed 20 mg PO DAILY #90 caps 04/16/24 06/27/24 Rx release fenofibrate 160 mg tablet 160 mg PO DAILY #90 tabs 04/18/24 06/27/24 Rx rosuvastatin 5 mg tablet 5 mg PO D
[2024-07-08] VITALS (7 sets, daily range): BP systolic 92–148; BP diastolic 42–75; PULSE 73–98; RESP 10–22; TEMP 36.1–38; O2SAT 96–100
--- NOTE | ~2024-07-08 | XR_ITS ---
XR hip RT 1V w AP pelvis Ordering provider: Michael Garrison MD History: . POST-OP RIGHT TOTAL HIP ANTERIOR APPROACH . Comparison: None. FINDINGS: BONES: No acute fracture or dislocation. HIP JOINT SPACES: Right hip arthroplasty. Left hip shows severe osteoarthritic changes. PUBIC SYMPHYSIS: Normal. SOFT TISSUES: Postoperative changes in the right hip area. IMPRESSION: Right hip arthroplasty with postoperative changes.. Reviewed, dictated and finalized at location A.
--- NOTE | ~2024-07-08 | XR_ITS ---
EXAMINATION: XR surgery orthopedic DATE: 07/08/2024 10:59 INDICATION: Right total hip arthroplasty TECHNIQUE: 2 fluoroscopic image of the right hip were obtained during procedure performed by Dr. Artem bear. Radiologist was not present for the imaging or procedure. The amount of fluoroscopy time used du ring this procedure was 0.4 minutes. COMPARISON: Right hip radiographs dated 06/05/2024 FINDINGS: Interval placement of a noncemented right total hip arthroplasty which appears well seated in near-an atomic alignment. No fracture of the visualized bones. Portions of the pelvis are excluded from the f [id number]-he-hozx. Expected lucent soft tissue gas at the upper bed. IMPRESSION: 1. Expected appearance during right total hip arthroplasty. See procedure note for further detail. Reviewed, dictated and finalized at location B.
[2024-07-08] MEDS: LACTATED RINGERS 1,000 ML 30 ML IV CONT ×2 (07:00→11:14)
[2024-07-08] MEDS: TRANEXAMIC ACID 1,000MG/ISO100 1,000 MG/100 ML BAG 200 MG IVPB (07:00)
[2024-07-08] MEDS: ACETAMINOPHEN 500 MG TABLET 1000 MG PO (07:00)
[2024-07-08] MEDS: VANCOMYCIN 1,000 MG/NS 250 ML BAG 250 MG IVPB (07:00)
--- NOTE | 2024-07-08 07:16 | WPDANESEPPF ---
Anes - Initial Pre Proc Eval Procedure: Operation Date: 07/08/24 07:30 Proposed Procedures p Right Total Hip Arthroplasty, Anterior Approach - Michael Garrison MD Date/Time: 07/08/24 07:16 Surgeon: Michael Garrison MD Pre Op Diagnosis: right hip OA Patient Data Age: 68 Gender: F Height: 1.63 m Weight: 70 kg Last Vital Signs Temp 98.3 F 06/27/24 12:16 Pulse 67 06/27/24 12:16 Resp 16 06/27/24 12:16 BP 142/81 H 06/27/24 12:16 Pulse Ox 99 06/27/24 12:16 O2 Del Method Room Air 06/27/24 12:16 Allergies Allergy/AdvReac Type Severity Reaction Status Date / Time amoxicillin Allergy Severe ANAPHALXIS Verified 06/27/24 12:10 cefuroxime Allergy Severe Unknown Verified 06/27/24 12:10 Cephalosporins Allergy Severe ANAPHALAXIS Verified 06/27/24 12:10 Penicillins Allergy Severe ANAPHALAXIS Verified 06/27/24 12:10 Home Medications Medication Instructions Recorded Confirmed Type umxprmwljxec-zdzlxlch-tqnyxr tablet 1 tablet PO DAILY 09/29/20 06/27/24 History cholecalciferol (vitamin D3) 50 50 mcg PO DAILY 11/10/20 06/27/24 History mcg (2,000 unit) capsule ascorbic acid (vitamin C) 1,000 mg 1 g PO DAILY 01/22/21 06/27/24 History tablet calcium carbonate 600 mg-vitamin 1 tablet PO DAILY 01/22/21 06/27/24 History D3 20 mcg (800 unit) tablet (Caltrate with Vitamin D3) coQ10 (ubiquinol) 100 mg capsule 100 mg PO DAILY 01/22/21 06/27/24 History acetaminophen 500 mg tablet 1,000 mg PO .PRN 10/05/21 06/27/24 History (Tylenol Extra Strength) naproxen sodium 220 mg tablet 220 mg PO BID PRN hip 10/12/23 06/27/24 History (Aleve) fluoxetine 20 mg capsule 20 mg PO DAILY #90 caps 01/29/24 06/27/24 Rx omeprazole 20 mg capsule,delayed 20 mg PO DAILY #90 caps 04/16/24 06/27/24 Rx release fenofibrate 160 mg tablet 160 mg PO DAILY #90 tabs 04/18/24 06/27/24 Rx rosuvastatin 5 mg tablet 5 mg PO DAILY #100 tabs 04/18/24 06/27/24 Rx alprazolam 0.25 mg tablet 0.25 mg PO TID PRN anxiety #90 tabs 05/29/24 06/27/24 Rx Patient hx anesthesia problems: none Family hx anesthesia problems: none Results Review: All pre-operative results and documents have been reviewed as part of the pre-operative evaluation. [facility] Past Medical History Medical History Acquired pes planus of both feet Anxiety Arthritis of foot, left, degenerative GERD without esophagitis Injury of left foot including toes Mixed hyperlipidemia Osteoarthritis Osteopenia Vitamin D deficiency Surgical History Surgical History History of arthroscopy of knee (~2018) Hx of colonoscopy (~2018) Status post rotator cuff repair (~2020) Family History Family History Mother Diabetes mellitus Elevated LDL cholesterol level Father , lung cancer No problems noted. Sibling , MVC No problems noted. Sibling No problems noted. Social History Social History Smoking packs per day: 0.5 Smoking cigarettes per day: 10.0 Years smoked: 30 Smoking pack-years: 15.00 Smoking status: Former smoker Tobacco type: cigarettes Second hand tobacco smoke exposure: No Smoking end date: 01/09/18 Alcohol intake: current Substance use: never Substance use type: does not use Do You Feel Safe in your Home?: Yes Lack of Transportation: No Lack of Food: Never True Current Housing: Decline to Answer Concerned About Future Housing: Decline to Answer Difficulty Paying Gas/Electric Bills: Decline to Answer Difficulty Paying for Meds: Decline to Answer Currently Unemployed: Decline to Answer Education: Decline to Answer Difficulty w/ Childcare or Family Care: Decline to Answer Living arrangements: with family Additional living arrangements comments
--- NOTE | 2024-07-08 07:16 | WPDHPUPDATE1 ---
History and Physical Update Update Date/Time: 07/08/24 07:16 History and Physical has been reviewed, including an updated exam of the patient. There are NO changes in the patient's condition. Risks, benefits, and alternatives have been discussed and questions answered. Patient agrees to proceed with procedure.
[2024-07-08] MEDS: AZTREONAM 2 GM in SODIUM CHLORIDE 0.9% IV 100 ML 200 ML IVPB ×2 (07:44→18:34)
[2024-07-08] MEDS: SODIUM CHLORIDE 0.9% IV 37.7 ML, MORPHINE SULFATE INJ (*CRX) 2 MG, ROPivacaine HCL 1% 2... INFILTRATE (08:15)
[2024-07-08] MEDS: VANCOMYCIN HCL 1,000 MG VIAL 1000 MG TOPICAL (08:17)
[2024-07-08] MEDS: TRANEXAMIC ACID 1,000 MG/10 ML AMPUL 1000 MG IV PUSH (10:32)
[2024-07-08] MEDS: KETOROLAC 15 MG/ML VIAL (*BKC) IV PUSH ×3 (10:38→20:33)
[2024-07-08] MEDS: AZTREONAM 1 GM in SODIUM CHLORIDE 0.9% IV 50 ML 100 ML IVPB (10:51)
--- NOTE | 2024-07-08 11:21 | PM.OP ---
Procedure Note - Brief Procedure Note - Brief Date of procedure: 07/08/24 right hip OA Procedure performed: Right anterior total hip arthroplasty Surgeon: CELESTINA Johnson Findings: 68-year-old female who underwent right anterior total hip arthroplasty on 07/08. I was involved in the procedure including positioning the patient on the OR table in 1st assisting through the time surgery. Total time spent was 3-1/2 hours
--- NOTE | 2024-07-08 11:35 | W.PM.PROC2 ---
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 Ma catheter was placed boots applied to the feet after additional soft roll padding and she was transferred to the [facility] and the right hip prepped draped usual fashion. She received weight based vancomycin , 2 gm Aztreonam and 1 g of TXA preoperatively. History of anaphylaxis with cephalosporins. 10 cm longitudinal incision was made starting 3 cm lateral to the ASIS. Dissection was carried down to the fascia over the tensor fascia rehana which was exposed and incised along its midportion and elevated off the anterior 1/2 of the TFL muscle. Interval between TFL and rectus femoris developed and the crossing branches of ascending lateral femoral circumflex vessels were ligated with suture divided. Retractor was placed anterior to the capsule the hip abducted internally rotated the gluteus minimus elevated off the lateral capsule. Inverted T capsulotomy was performed. Femoral neck osteotomy was made. She had a very low femoral neck cut templated as she had a short varus hip. Our initial femoral neck osteotomy was conservative. The femoral head was removed. Acetabular labrum excised. Intraoperative fluoro picture of the hip was obtained which showed our femoral neck cut was still long. An additional 6 mm of bone was removed from the medial femoral neck at this time. The leg was externally rotated extended and the interval between conjoined tendon and piriformis was incised over the saddle area which allowed the conjoined tendon to recess partially. This was felt to give adequate exposure. With the leg back in the horizontal position and traction external rotation acetabulum was prepared. We medialized with a 40 mm Reamer and reamed up to 46. We still had a 1 mm rim of bone at the periphery of the acetabulum circumferentially. Therefore we reamed up to a 47 and then final careful reaming to the 48 Reamer which gave reaming of the inner surface of the acetabulum to the periphery at the equator. Bone quality seemed very good. The 48 emphasis cup was chosen and gradually impacted at 40? of abduction and anteversion such at the anterior rim was 2 mm under the anterior rim of the acetabulum. This left a posterior superior rim about 4 mm prominent to the acetabular rim in that location. Excellent Press-Fit was achieved a single screw placed in the ilium and the 36 inner diameter liner placed without difficulty. The leg was externally rotated extended and the femur exposed. Broached up to a size 4 which was our preoperative plan. We countersunk this a little bit below the remaining neck and performed a trial reduction. With the size 1.5 head the hip was just slightly looser than average and with the has 5 head there was appropriate stability. Leg lengths were assessed fluoroscopically and the lesser trochanter measurement on the right suggested we were about 2 mm longer than the left on since there was arthritic change in the left side felt this was a hole in matched our preoperative plan. The hip was dislocated and a provisional planing of the medial femoral neck at the calcar was performed using the precision saw and we assessed the torsional stability of the broach which had play we went up to a size 5 Actis broach which also had rotational play went up to a size 6 which gave excellent stability. We trialed again and the extra 2 mm of offset and length provided by the jump to the size 6 made the 1.5 head appropriately stable and the +5 had too tight. Recessed the x-ray and again it looked like we were about 1 or 2 mm long and on the right leg when compared the left and offset seemed appropriate. At t
[2024-07-08] MEDS: fentaNYL CITRATE INJ (*CRX) 100 MCG/2 ML VIAL 25 MCG IV PUSH ×3 (11:57→12:05)
--- NOTE | 2024-07-08 12:40 | ADMGEN ---
This patient, Magali Spear, was admitted to [facility] Surg Room 304-02. Patient/family oriented to hospital policies and general routines including ID bracelet, bed and alarms, visiting hours, pain management, procedures, bathroom and other care routines, personal items, smoking policy, room service/diet, and visiting hours. Information on how to activate the Rapid Response Team has been discussed. Patient/Family are encouraged to report perceived risks to care and to ask questions if they do not understand what they are told or what they should do.
--- NOTE | 2024-07-08 14:10 | WPDCN ---
Assessment and Plan Assessment and plan (1) Primary osteoarthritis of right hip: Code(s): M16.11 - Unilateral primary osteoarthritis, right hip Status: Acute Assessment and Plan: Postoperative day 0 status post right total hip arthroplasty, direct anterior approach. Wound care, pain control, and DVT prophylaxis deferred to Dr. Garrison. PT/OT consulted. Check CBC and CMP in a.m.. (2) GERD without esophagitis: Code(s): K21.9 - Gastro-esophageal reflux disease without esophagitis Status: Acute Assessment and Plan: Resume PPI. (3) Anxiety: Code(s): F41.9 - Anxiety disorder, unspecified Status: Acute Assessment and Plan: Continue fluoxetine and alprazolam p.r.n.. (4) Mixed hyperlipidemia: Code(s): E78.2 - Mixed hyperlipidemia Status: Acute Assessment and Plan: Continue fenofibrate and rosuvastatin. Plan Thank you for allowing us to participate in this patient's care. Please do not hesitate to contact us with any questions. HPI Data of Consult Date/Time: 07/08/24 14:10 Requesting Physician: Michael Garrison MD Consult Narrative Reason for consult: Medical management Narrative: This is a very pleasant 68-year-old female with osteoarthritis, dyslipidemia, gastroesophageal reflux disease, and anxiety whom the hospitalist service has been consulted for help managing her medical conditions postoperatively. The patient reports a 2 year history of ongoing right hip pain which has gotten worse despite conservative outpatient therapy and she elected for replacement today. Her surgery was performed under general anesthesia with no immediate complications documented an estimated blood loss of 400 mL, 125 mL given to the patient via Cell Saver. Postoperatively she has done quite well. She is up with a walker and to the chair without much issue. Her pain seems to be well controlled. Her only complaint is that of a slight scratchy throat which she attributes to intubation. She denies postoperative fever, chills, sweats, chest pain, shortness of breath, nausea, and vomiting. She also denies paresthesias, skin color, temperature changes distal to the surgical site. Regarding her chronic medical conditions, she believes they are well controlled on home medications. Review of Systems Review of Systems: 12 systems were reviewed and are negative except for as per HPI. [facility] Past Medical History Medical History (Updated 07/08/24 @ 14:14 by Roberta Mojica PA-C) Anxiety GERD without esophagitis Mixed hyperlipidemia Osteoarthritis Osteopenia Vitamin D deficiency Surgical History Surgical History (Updated 07/08/24 @ 14:14 by Roberta Mojica PA-C) History of arthroscopy of left knee (2018) History of bunionectomy of both great toes History of repair of right rotator cuff (2020) History of total right hip arthroplasty (07/08/24) Family History Family History Mother Diabetes mellitus Elevated LDL cholesterol level Father , lung cancer No problems noted. Sibling , MVC No problems noted. Sibling No problems noted. Social History Social History (Updated 07/08/24 @ 14:14 by Roberta Mojica PA-C) Social History: Surrogate medical decision maker: Jasvir Spear, spouse. Code status: Full code. Smoking packs per day: 0.5 Smoking cigarettes per day: 10.0 Years smoked: 30 Smoking pack-years: 15.00 Smoking status: Former smoker Tobacco type: cigarettes Second hand tobacco smoke exposure: No Smoking end date: 01/09/18 Alcohol intake: never Substance use: never Substance use type: does not use Do You Feel Safe in your Home?: Yes Lack of Transportation: No Lack of Food: Never True Current Housing: I Have Housing Concerned About Future Housing: No Difficulty Paying Gas/Electric Rogelio
[2024-07-08] MEDS: oxyCODONE HCL (*CRX) 5 MG TAB IR PO ×3 (14:59→21:44)
[2024-07-08] MEDS: ACETAMINOPHEN 325 MG TABLET 650 MG PO ×3 (14:59→21:44)
[2024-07-08] MEDS: SENNA/DOCUSATE SODIUM TABLET 2 TAB PO (18:34)
[2024-07-08] MEDS: VANCOMYCIN 1,000 MG/NS 250 ML 1,000 MG/250 ML BAG 200 MG IVPB (19:56)
[2024-07-08] MEDS: FAMOTIDINE 20 MG TABLET PO (19:56)
[2024-07-09 00:31] VITALS: BP 117/58; PULSE 82; RESP 18; TEMP 36.7; O2SAT 99
[2024-07-09] MEDS: ACETAMINOPHEN 325 MG TABLET 650 MG PO ×3 (02:32→09:20)
[2024-07-09] MEDS: oxyCODONE HCL (*CRX) 5 MG TAB IR PO ×3 (02:32→09:20)
[2024-07-09] MEDS: AZTREONAM 2 GM in SODIUM CHLORIDE 0.9% IV 100 ML 200 ML IVPB ×2 (02:33→09:21)
[2024-07-09 04:29] VITALS: BP 145/71; PULSE 89; RESP 16; TEMP 37.5; O2SAT 99
[2024-07-09 06:41] LABS: Basophils Percent Auto 0.1 % (0.2-1.2); Hemoglobin 10.1 g/dL (12.0-15.0); Immature Granulocyte Absolute 0.05 K/mm3 (0.00-0.031); Immature Granulocyte Percent A 0.4 % (0-0.5); Lymphocytes Absolute Auto 1.39 K/mm3 (0.9-3.2); Lymphocytes Percent Auto 12.2 % (18.3-44.2); Mean Corpuscular HGB Conc 32.6 g/dl (32-36); Mean Corpuscular Hemoglobin 29.6 pg (26-34); Mean Corpuscular Volume 90.9 fl (80-100); Mean Platelet Volume 10.7 fl (7.4-10.4); Monocytes Absolute Auto 1.1 K/mm3 (0.1-0.6); Monocytes Percent Auto 9.3 % (2.6-8.5); Neutrophils Absolute Auto 8.9 K/mm3 (1.3-6.7); Platelet Count Result 256 k/mm3 (150-375); Red Blood Count 3.41 M/mm3 (4.2-5.4); Red Cell Distribution Width 14.4 % (11.5-14.5); White Blood Count 11.4 K/mm3 (4.5-10.0)
[2024-07-09 06:56] LABS: Alanine Aminotransferase 23 U/L (6-35); Alkaline Phosphatase 50 U/L (38-126); Anion Gap 7 mmol/L (4-12); Aspartate Amino Transferase 50 U/L (14-36); Bilirubin,Total 0.3 mg/dL (0.2-1.3); Blood Urea Nitrogen 16 mg/dL (7-17); Carbon Dioxide 26 mmol/L (22-30); Chloride 105 mmol/L (98-107); Estimated CRCL calculation 58 ml/min; Estimated Glomerular Filt Rate > 60; Glucose 106 mg/dL (65-110); Magnesium 1.8 mg/dL (1.6-2.3); Sodium 138 mmol/L (137-145)
[2024-07-09] MEDS: VANCOMYCIN 1,000 MG/NS 250 ML 1,000 MG/250 ML BAG 200 MG IVPB (07:00)
--- NOTE | 2024-07-09 08:21 | PM.DS ---
DS: Admitting Diagnosis Discharge Date 07/09/2024 Admitting Diagnosis Osteoarthritis right hip DS: Summary Hospital Course Hospital Course: Patient has done well following surgery extra day. She has been up walking around since yesterday. Her pain is well controlled. Her incision is dry and there is no significant swelling. Her hemoglobin is 10.1 representing mild acute blood loss anemia. She does have mild elevation of AST at 50. ALT and bilirubin. Alkaline phosphatase is normal. She had an AST of 55 last year. Time Spent with Patient Time attestation: Total time spent providing and/or coordinating discharge services: DS: Data Data Completed and Pending Labs on day of discharge: Labs from last 24 hours 07/09/24 06:21 WBC 11.4 H RBC 3.41 L Hgb 10.1 L Hct 31.0 L MCV 90.9 MCH 29.6 MCHC 32.6 RDW 14.4 Plt Count 256 MPV 10.7 H Immature Gran % (Auto) 0.4 Neut % (Auto) 78.0 H Lymph % (Auto) 12.2 L [place] % (Auto) 9.3 H Eos % (Auto) 0.0 Baso % (Auto) 0.1 L Lymph # (Auto) 1.39 [place] # (Auto) 1.1 H Eos # (Auto) 0.0 Baso # (Auto) 0.0 Abs Immat Gran (auto) 0.05 H Absolute Neuts (auto) 8.9 H Absolute Nucleated RBC 0.000 Nucleated RBC % 0.0 Sodium 138 Potassium 4.0 Chloride 105 Carbon Dioxide 26 Anion Gap 7 BUN 16 Creatinine 0.80 Estim Creat Clear Calc 58 Estimated GFR > 60 Glucose 106 Calcium 9.0 Magnesium 1.8 Total Bilirubin 0.3 Direct Bilirubin 0.0 AST 50 H ALT 23 Alkaline Phosphatase 50 Total Protein 7.0 Albumin 4.0 Discharge Plan Discharge Patient Disposition: Home, Self-Care Discharge Instructions: Lissa J[facility] [address] [place] [address] [address] [place] [address] POST-OPERATIVE DISCHARGE INSTRUCTIONS ANTERIOR TOTAL HIP ARTHROPLASTY 1. Move toes/feet up and down every hour while awake. 2. Be up walking every hour while awake. 3. Use walker registered phlebotomist part time if instructed to use walker registered phlebotomist part time.When you are allowed to use the cane, use the cane in the opposite hand. 4. When resting, do not rest in the chair. Rather, lie on your back, with back flat, and the leg elevated above heart to minimize swelling. You may put a pillow under your head. Do not rest in a chair. Resting in the chair results in swelling in the leg. Significant swelling could indicate a blood clot and if this occurs, call the office (or go to the ER) to have a venous ultrasound performed. Its ok to sit in the chair to eat and use the toilet and to receive a guest but sitting in a chair will cause your leg to swell. so try to minimize sitting in a chair. 5. Wound Care: Apply a folded 4x4 sponge to incision and hold with crossing strips of 1 inch Transpore tape. 6. Follow weight bearing status as instructed: 7. May shower. Remove dressing before shower and reapply dressing after shower. There is risk of respiratory depression and over does narcotics such as oxycodone and alprazolam. You are taking a small dose of alprazolam. I would recommend that if you have taken alprazolam within the last 8 hours that you cut the 5 mg oxycodone tablet in half so that you are taking only 2.5 mg of oxycodone to be safe. Stand Alone Forms: General Discharge Instructions Follow-up/Referrals: Michael Garrison MD [Physician] - Discharge Medications: New acetaminophen 325 mg Tablet 650 mg PO Q4H Qty: 100 0RF Eliquis 2.5 mg Tablet 2.5 mg PO Q12HR Qty: 70 0RF polyethylene glycol 3350 [Miralax] 17 gram Powder In Packet 17 g PO QAM Qty: 30 0RF celecoxib [Celebrex] 100 mg Capsule 100 mg PO DAILY Qty: 9 0RF doxycycline hyclate 100 mg Tablet 100 mg PO Q12HR Qty: 20 0RF oxycodone 5 mg Tablet 5 mg PO Q4H PRN (Reason: Pain Rated 7-10) Qty: 40 0RF Rx Instructions: Take only 1/2 tablet every 4 hours if you have taken alprazolam within the last 8 hours sennosides-docusate sodium [Senokot-S] 8.6-50 m
[2024-07-09 08:51] VITALS: O2SAT 99
--- NOTE | 2024-07-09 08:51 | WPDANESPN ---
Anes - Prog Note Post-Op Date/Time: 07/09/24 08:51 Cardiovascular status: normal Respiratory status: normal Airway patency: baseline Mental status: baseline Post-Op hydration status: normal Vital Signs: Last Vital Signs Temp 37.5 C 07/09/24 04:29 Pulse 89 07/09/24 04:29 Resp 16 07/09/24 04:29 BP 145/71 H 07/09/24 04:29 Pulse Ox 99 07/09/24 04:29 O2 Del Method Room Air 07/08/24 16:45 O2 Flow Rate 8 07/08/24 11:29 Pain Score (VAS): 0 I/O: Intake & Output 07/08/24 07/09/24 07/09/24 23:59 07:59 15:59 Intake Total 100 600 Output Total 550 2940 Balance -450 -2340 Laboratory Tests 07/09/24 06:21 07/09/24 06:21 07/09/24 06:21 WBC 11.4 H RBC 3.41 L Hgb 10.1 L Hct 31.0 L MCV 90.9 MCH 29.6 MCHC 32.6 RDW 14.4 Plt Count 256 MPV 10.7 H Immature Gran % (Auto) 0.4 Neut % (Auto) 78.0 H Lymph % (Auto) 12.2 L [place] % (Auto) 9.3 H Eos % (Auto) 0.0 Baso % (Auto) 0.1 L Lymph # (Auto) 1.39 [place] # (Auto) 1.1 H Eos # (Auto) 0.0 Baso # (Auto) 0.0 Abs Immat Gran (auto) 0.05 H Absolute Neuts (auto) 8.9 H Absolute Nucleated RBC 0.000 Nucleated RBC % 0.0 Sodium 138 Potassium 4.0 Chloride 105 Carbon Dioxide 26 Anion Gap 7 BUN 16 Creatinine 0.80 Estim Creat Clear Calc 58 Estimated GFR > 60 Glucose 106 Calcium 9.0 Magnesium 1.8 Total Bilirubin 0.3 Direct Bilirubin 0.0 AST 50 H ALT 23 Alkaline Phosphatase 50 Total Protein 7.0 Albumin 4.0 Post-procedural complaints: none Patient Feedback: Patient satisfied with anesthetic care.
[2024-07-09] MEDS: CHOLECALCIFEROL 1,000 UNITS TABLET 2000 UNITS PO (09:11)
[2024-07-09] MEDS: DOXYCYCLINE HYCLATE 100 MG TABLET PO (09:11)
[2024-07-09] MEDS: polyethylene glycoL 3350 17 GM POWD.PACK PO (09:12)
[2024-07-09] MEDS: CELECOXIB 100 MG CAPSULE PO (09:12)
[2024-07-09] MEDS: FENOFIBRATE 160 MG TABLET PO (09:12)
[2024-07-09] MEDS: APIXABAN 2.5 MG TABLET PO (09:12)
[2024-07-09] MEDS: FAMOTIDINE 20 MG TABLET PO (09:12)
[2024-07-09] MEDS: SENNA/DOCUSATE SODIUM TABLET 2 TAB PO (09:12)
[2024-07-09] MEDS: PANTOPRAZOLE 40 MG TABLET PO (09:12)
[2024-07-09] MEDS: FLUoxetine HCL 20 MG CAPSULE PO (09:12)
[2024-07-09] MEDS: ROSUVASTATIN 5 MG TABLET PO (09:17)
[2024-07-09 10:10] VITALS: BP 135/55; PULSE 86; RESP 18; TEMP 37.8; O2SAT 97
== END 2024-07-09 11:45 | disposition home or self-care (01) ==
LOC: ANHSURGERY 06:18 → ANH3MEDSUR 12:35
PROVIDERS: Physician Assistant; Physician Assistant Surgical; PCP Family Medicine; Visit Provider Orthopaedic Surgery
PROC: (CPT 27130; principal; 2024-07-08 07:30)
DX: M16.11 Unilateral primary osteoarthritis, right hip (principal); D62 Acute posthemorrhagic anemia; E78.2 Mixed hyperlipidemia; E55.9 Vitamin D deficiency, unspecified; K21.9 Gastro-esophageal reflux disease without esophagitis; F41.9 Anxiety disorder, unspecified; Z87.891 Personal history of nicotine dependence
CPT/HCPCS: 27130; 36415; 73501; 80048; 80076; 83735; 85025; 97110; 97116; 97161; 97165; 97530; 97535; 99199; A9270; C1776; J0171; J0457; J1100; J1170; J1596; J1885; J2250; J2270; J2371; J2405; J2704; J2795; J3010; J3370; J7040; J7120

== ENCOUNTER 2024-10-28 09:46 | Outpatient (CLI) | payer MEDICARE, SELFPAY ==
[2024-10-28 20:38] LABS: Basophils Percent Auto 0.6 % (0.2-1.2); Eosinophils Absolute Auto 0.1 K/mm3 (0-0.3); Hematocrit 43.1 % (37.0-47.0); Hemoglobin 13.7 g/dL (12.0-15.0); Lymphocytes Absolute Auto 1.83 K/mm3 (0.9-3.2); Lymphocytes Percent Auto 38.4 % (18.3-44.2); Mean Corpuscular HGB Conc 31.8 g/dl (32-36); Mean Corpuscular Hemoglobin 28.3 pg (26-34); Mean Platelet Volume 10.8 fl (7.4-10.4); Monocytes Absolute Auto 0.4 K/mm3 (0.1-0.6); Monocytes Percent Auto 8.4 % (2.6-8.5); Neutrophils Absolute Auto 2.5 K/mm3 (1.3-6.7); Neutrophils Percent Auto 51.6 % (45.5-73.1); Platelet Count Result 378 k/mm3 (150-375); Red Blood Count 4.84 M/mm3 (4.2-5.4); Red Cell Distribution Width 14.8 % (11.5-14.5); White Blood Count 4.8 K/mm3 (4.5-10.0)
[2024-10-28 21:38] LABS: Hemoglobin A1C 5.8 % (<5.7)
[2024-10-28 22:19] LABS: Alanine Aminotransferase 20 U/L (6-35); Albumin Level 4.6 g/dL (3.5-5.1); Alkaline Phosphatase 69 U/L (38-126); Anion Gap 2 mmol/L (4-12); Aspartate Amino Transferase 87 U/L (14-36); Bilirubin,Total 0.5 mg/dL (0.2-1.3); Blood Urea Nitrogen 18 mg/dL (7-17); Calcium 10.1 mg/dL (8.4-10.2); Carbon Dioxide 29 mmol/L (22-30); Chloride 109 mmol/L (98-107); Cholesterol 161 mg/dL (0-200); Estimated Glomerular Filt Rate > 60; Glucose 68 mg/dL (65-110); HDL Direct 55 mg/dL; Potassium 4.3 mmol/L (3.4-5.0); Sodium 140 mmol/L (137-145); Triglycerides 103 mg/dL (<150)
[2024-10-28 22:30] LABS: LDL Cholesterol Direct 64 mg/dL
[2024-10-28 22:42] LABS: Vitamin D 25 Hydroxy 73.1 ng/mL
== END 2024-10-28 09:47 | disposition home or self-care (01) ==
LOC: ANHGOSHLAB 09:47
PROVIDERS: PCP Family Medicine; Visit Provider Family Medicine
DX: E78.2 Mixed hyperlipidemia (principal); I10 Essential (primary) hypertension; F41.9 Anxiety disorder, unspecified; E55.9 Vitamin D deficiency, unspecified; R73.9 Hyperglycemia, unspecified; E53.8 Deficiency of other specified B group vitamins
CPT/HCPCS: 36415; 80053; 80061; 82306; 82607; 83036; 84443; 85025

== ENCOUNTER 2024-11-29 10:45 | Emergency (ER) | payer MEDICARE, SELFPAY ==
--- NOTE | ~2024-11-29 | CT_ITS ---
EXAMINATION: CT lumbar spine wo con DATE: 11/29/2024 14:30 INDICATION: Nontraumatic low back pain. TECHNIQUE: Computed tomography (CT) of the lumbar spine was performed without intravenous contrast. A utomated exposure control and iterative reconstruction technique were employed. The dose-length produ ct was 499.42 mGy-cm. COMPARISON: None FINDINGS: 15 degrees upper lumbar levoscoliosis. 3 mm retrolisthesis and 4 mm left lateral listhesis L2 on L3 a nd 1.5 mm retrolisthesis L1 on L2. Relatively recent-appearing L4 compression fracture with lucent fr acture line extending around the periphery of the superior endplate and with minimal central vertebra l body height loss. No other fractures identified. Severe disc height loss with right-sided Modic typ e III sclerotic endplate changes at L2-L3. Additional severe disc height loss with mild degenerative endplate changes at L5-S1. Moderate right-sided predominant disc height loss at L1-L2 and diffuse mil d disc height loss at L4-L5. There are few sigmoid diverticula without adjacent inflammatory change t o suggest diverticular colitis. The following disc levels are specifically discussed: T11-T12: Disc is mildly bulging. There is mild right and severe left facet joint osteoarthritis. Ther e is mild left neural foraminal stenosis. There is minimal central canal stenosis. T12-L1: The disc does not extend beyond the endplate margin. There is mild bilateral facet joint oste oarthritis. There is no neural foraminal stenosis. There is no central canal stenosis. L1-L2: Disc is bulging. There is mild right and moderate left facet joint osteoarthritis. There is mi ld bilateral neural foraminal stenosis. There is mild central canal stenosis. L2-L3: Disc is bulging. There is mild right and moderate left facet joint osteoarthritis. There is mi ld left and mild to moderate right neural foraminal stenosis. There is mild central canal stenosis. L3-L4: Disc is bulging. There is moderate right and severe left facet joint osteoarthritis. There is mild bilateral neural foraminal stenosis. There is moderate central canal stenosis. L4-L5: Disc is bulging. There is severe bilateral facet joint osteoarthritis. There is mild to modera te bilateral neural foraminal stenosis. There is mild to moderate central canal stenosis. L5-S1: Disc is bulging with vacuum phenomena within a superimposed central disc extrusion which exten ds a few millimeters cephalad an caudal to the level of the endplates. There is moderate bilateral fa cet joint osteoarthritis. There is mild bilateral neural foraminal stenosis. There is mild central ca nal stenosis. IMPRESSION: 1. Recent-appearing L4 superior endplate compression fracture with minimal central vertebral body hei ght loss. 2. 15 degrees lumbar levoscoliosis with severe spondylosis. Reviewed, dictated and finalized at location B. WORKER IMPRESSION: 1. Recent-appearing L4 superior endplate compression fracture with minimal cent ral vertebral body height loss. 2. 15 degrees lumbar levoscoliosis with severe spondylosis.
[2024-11-29 10:46] VITALS: PULSE 67; RESP 16; TEMP 36.2; O2SAT 100
[2024-11-29 11:27] VITALS: BP 122/68; PULSE 71; RESP 18; TEMP 36.6; O2SAT 98
[2024-11-29 13:56] VITALS: BP 122/75; PULSE 70; RESP 16; TEMP 36.6; O2SAT 100
--- NOTE | 2024-11-29 14:06 | ED.BACK ---
HPI - Back Pain/Injury General Chief Complaint: Back Pain/Injury Stated Complaint: back pain Time Seen by Provider: 11/29/24 14:03 Source: patient Mode of arrival: ambulatory Limitations: no limitations History of Present Illness HPI Narrative: 70 years old white female came to the ED by private car complaining of left buttock pain started 2 weeks ago, within few days after starting work out 3 weeks ago. Pain worse with certain position and movement, better if she remaining still. Patient denies radiation of pain, fever, chills, nausea vomiting, abdominal pain, chest pain or shortness of breath. History of anxiety and depression. Related Data Home Medications ?Medication ?Instructions ?Recorded ?Confirmed ?Last Taken ?Type L.acid,bul,para,rham-B.anim,long cap PO 09/02/24 10/28/24 Unknown History 10 billion cell-inulin 100 mg capsule (Probitoic Digestive Support (6 strain)) calcium carbonate 600 mg PO DAILY 09/02/24 10/28/24 Unknown History coenzyme Q10 100 mg capsule 100 mg PO DAILY 09/02/24 10/28/24 Unknown History multivitamin (Daily Multi-Vitamin 1 tablet PO DAILY 09/02/24 10/28/24 Unknown History tablet) vit R-ucrqy-hhqjbpjxez-bioflav tablet PO 09/02/24 10/28/24 Unknown History tablet acetaminophen 325 mg tablet 325 mg PO BID pain 10/28/24 10/28/24 Unknown History cholecalciferol (vitamin D3) 50 50 mcg PO DAILY 10/28/24 10/28/24 Unknown History mcg (2,000 unit) capsule omega-3 fatty acids 1,000 mg 1,000 mg PO DAILY 10/28/24 10/28/24 Unknown History capsule rosuvastatin 5 mg tablet 5 mg PO QHS 10/28/24 10/28/24 Unknown History Allergies Allergy/AdvReac Type Severity Reaction Status Date / Time amoxicillin Allergy Severe ANAPHALXIS Verified 11/29/24 12:21 cefuroxime Allergy Severe Unknown Verified 11/29/24 12:21 Cephalosporins Allergy Severe ANAPHALAXIS Verified 11/29/24 12:21 Penicillins Allergy Severe ANAPHALAXIS Verified 11/29/24 12:21 Review of Systems Review of Systems: All systems reviewed & are unremarkable except as noted in HPI and below PMFSH Past Medical History Medical History Osteoarthritis Vitamin D deficiency GERD without esophagitis Osteopenia Anxiety Mixed hyperlipidemia Surgical History Surgical History History of repair of right rotator cuff (2020) History of arthroscopy of left knee (2018) History of bunionectomy of both great toes History of total right hip arthroplasty (07/08/24) Family History Family History Mother Diabetes mellitus Elevated LDL cholesterol level Father , lung cancer No problems noted. Sibling , MVC No problems noted. Sibling No problems noted. Social History Social History Social History: Surrogate medical decision maker: Jasvir Spear, spouse. Code status: Full code. Smoking packs per day: 0.5 Smoking cigarettes per day: 10.0 Years smoked: 30 Smoking pack-years: 15.00 Smoking status: Former smoker Tobacco type: cigarettes Second hand tobacco smoke exposure: No Smoking end date: 01/09/18 Alcohol intake: never Substance use: never Substance use type: does not use Do You Feel Safe in your Home?: Yes Lack of Transportation: No Lack of Food: Never True Current Housing: I Have Housing Concerned About Future Housing: No Difficulty Paying Gas/Electric Bills: No Difficulty Paying for Meds: No Currently Unemployed: No Education: Trade/Vocational Certificate Difficulty w/ Childcare or Family Care: No Living arrangements: with family Additional living arrangements comments: Lives with in [place]. 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 Spiritual care concerns: No Agree to blood products: Yes Exam Narrative: General appearance: Well-developed, well-nourished Skin: Normal color Head: Normocephalic, nontraumatic Eyes: Clear conjunctiva ENT: Oropharynx normal, ears normal, nose normal Neck: Supple, nontender Chest and respiratory: Airway patent, no respiratory distress, no accessory muscle use Heart: Regular rate/rhythm Abdomen: Soft, nontender, no organomegaly, quiet bowel sounds Vascular: Normal peripheral pulses, normal capillary refill. 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 is normal as tested, no gross motor deficit Course Vital Signs Vital signs: Vital Signs Temperature 36.2 C L 11/29/24 10:46 Pulse Rate 67 11/29/24 10:46 Respiratory Rate 16 11/29/24 10:46 Pulse Oximetry 100 11/29/24 10:46 Oxygen Delivery Room Air 11/29/24 10:46 Temperature 36.7 C 11/29/24 15:31 Pulse Rate 70 11/29/24 13:56 Respiratory Rate 16 11/29/24 13:56 Blood Pressure 122/75 11/29/24 13:56 Pulse Oximetry 100 11/29/24 13:56 Oxygen Delivery Room Air 11/29/24 10:46 MDM - Back Pain/Injury MDM Narrative Medical decision making narrative: Musculoskeletal pain is my concern Blood workup today includes CBC, CMP showed no significant abnormality Urinalysis showed no evidence of infection, CT lumbar spine showed L4 mild compression fracture Discharge on diclofenac and cyclobenzaprine. Differential Diagnosis Differential diagnosis: Likely other (As above) Lab Data 11/29/24 14:19 11/29/24 14:19 Labs: Lab Results 11/29/24 11/29/24 Range/Units 14:19 14:21 WBC 7.8 (4.5-10.0) K/mm3 RBC 4.67 (4.2-5.4) M/mm3 Hgb 12.9 (12.0-15.0) g/dL Hct 40.7 (37.0-47.0) % MCV 87.2 (80-100) fl MCH 27.6 (26-34) pg MCHC 31.7 L (32-36) g/dl RDW 15.3 H (11.5-14.5) % Plt Count 342 (150-375) k/mm3 MPV 10.5 H (7.4-10.4) fl Immature Gran % (Auto) 0.4 (0-0.5) % Neut % (Auto) 59.1 (45.5-73.1) % Lymph % (Auto) 31.6 (18.3-44.2) % [place] % (Auto) 7.3 (2.6-8.5) % Eos % (Auto) 1.0 (0-4.4) % Baso % (Auto) 0.6 (0.2-1.2) % Lymph # (Auto) 2.45 (0.9-3.2) K/mm3 [place] # (Auto) 0.6 (0.1-0.6) K/mm3 Eos # (Auto) 0.1 (0-0.3) K/mm3 Baso # (Auto) 0.1 (0.0-0.1) K/mm3 Abs Immat Gran (auto) 0.03 (0.00-0.031) K/mm3 Absolute Neuts (auto) 4.6 (1.3-6.7) K/mm3 Absolute Nucleated RBC 0.000 (0.0-0.012) K/mm3 Nucleated RBC % 0.0 (0.0-0.2) % Sodium 141 (137-145) mmol/L Potassium 4.2 (3.4-5.0) mmol/L Chloride 104 (98-107) mmol/L Carbon Dioxide 24 (22-30) mmol/L Anion Gap 13 H (4-12) mmol/L BUN 22 H (7-17) mg/dL Creatinine 0.74 (0.7-1.0) mg/dL Estim Creat Clear Calc 53 ml/min Estimated GFR > 60 (59 - ) Glucose 82 (65-110) mg/dL Calcium 10.0 (8.4-10.2) mg/dL Total Bilirubin 0.5 (0.2-1.3) mg/dL AST 31 (14-36) U/L ALT 19 (6-35) U/L Alkaline Phosphatase 94 (38-126) U/L Total Protein 7.0 (6.3-8.2) g/dL Albumin 4.4 (3.5-5.1) g/dL Urine Color Yellow (Yellow) Urine Appearance Clear (Clear) Urine pH 7.0 (5.0-9.0) Ur Specific [place] 1.016 (1.001-1.035) Urine Protein Negative (Negative) mg/dL Urine Glucose (UA) Negative (Negative) mg/dL Urine Ketones Negative (Negative) mg/dL Ur Blood (Man) Negative (Negative) Urine Nitrate Negative (Negative) Urine Bilirubin Negative (Negative) Urine Urobilinogen 0.2 (<2.0) mg/dL Leukocyte Esterase Rfl Negative (Negative) NATALEE/UL Imaging Data Radiologist's impression: Impressions Lumbar Spine CT 11/29/24 15:29 IMPRESSION: 1. Recent-appearing L4 superior endplate compression fracture with minimal central vertebral body height loss. 2. 15 degrees lumbar levoscoliosis with severe spondylosis. Critical Care Time Critical Care Time Critical Care Time: No Discharge Plan Discharge Clinical Impression: Lower back pain, Closed compression fracture of L4 vertebra Patient Disposition: Home, Self-Care Condition: Stable Instructions: Vertebral Compression Fracture (ED), Acute Low Back Pain (ED) Patient Language: Romanian Prescriptions: New diclofenac sodium 75 mg tablet,delayed release (DR/EC) 75 mg PO BID PRN (Reason: pain) Qty: 14 0RF cyclobenzaprine 7.5 mg tablet 7.5 mg PO TID Qty: 20 0RF No Action cholecalciferol (vitamin D3) 50 mcg (2,000 unit) capsule 50 mcg PO DAILY omega-3 fatty acids 1,000 mg capsule 1,000 mg PO DAILY acetaminophen 325 mg tablet 325 mg PO BID rosuvastatin 5 mg tablet 5 mg PO QHS alprazolam 0.25 mg tablet 0.25 mg PO TID PRN (Reason: anxiety) Qty: 270 1RF calcium carbonate 600 mg calcium (1,500 mg) tablet 600 mg PO DAILY coenzyme Q10 100 mg capsule 100 mg PO DAILY multivitamin [Daily Multi-Vitamin] Tablet 1 tablet PO DAILY vit W-szfxr-etkxnwxobo-bioflav Tablet PO Probiotic Digest Supp (6-strn) 10 billion cell -100 mg capsule PO fluoxetine 20 mg capsule 20 mg PO DAILY Qty: 90 1RF omeprazole 20 mg capsule,delayed release(DR/EC) 20 mg PO DAILY Qty: 90 1RF fenofibrate 160 mg tablet 160 mg PO DAILY Qty: 90 1RF Follow-up/Referrals: Shukri Smith MD [Primary Care Provider] -
[2024-11-29 14:33] LABS: Basophils Absolute Auto 0.1 K/mm3 (0.0-0.1); Basophils Percent Auto 0.6 % (0.2-1.2); Eosinophils Absolute Auto 0.1 K/mm3 (0-0.3); Hematocrit 40.7 % (37.0-47.0); Hemoglobin 12.9 g/dL (12.0-15.0); Immature Granulocyte Absolute 0.03 K/mm3 (0.00-0.031); Immature Granulocyte Percent A 0.4 % (0-0.5); Lymphocytes Absolute Auto 2.45 K/mm3 (0.9-3.2); Lymphocytes Percent Auto 31.6 % (18.3-44.2); Mean Corpuscular HGB Conc 31.7 g/dl (32-36); Mean Corpuscular Hemoglobin 27.6 pg (26-34); Mean Corpuscular Volume 87.2 fl (80-100); Mean Platelet Volume 10.5 fl (7.4-10.4); Monocytes Absolute Auto 0.6 K/mm3 (0.1-0.6); Monocytes Percent Auto 7.3 % (2.6-8.5); Neutrophils Absolute Auto 4.6 K/mm3 (1.3-6.7); Neutrophils Percent Auto 59.1 % (45.5-73.1); Platelet Count Result 342 k/mm3 (150-375); Red Blood Count 4.67 M/mm3 (4.2-5.4); Red Cell Distribution Width 15.3 % (11.5-14.5); White Blood Count 7.8 K/mm3 (4.5-10.0)
[2024-11-29 14:35] LABS: Add Urine Microscopic? NO; Appearance Urine Clear (Clear); Bilirubin Urine Negative (Negative); Blood Urine Negative (Negative); Color Urine Yellow (Yellow); Glucose Urine UA Negative (Negative); Ketones Urine Negative (Negative); Leukocyte Esterase Ur Negative LEU/UL (Negative); Nitrate Urine Negative (Negative); Protein Urine Negative (Negative); Specific Grav Ur 1.016 (1.001-1.035); Urobilinogen Urine 0.2 mg/dL (<2.0)
[2024-11-29 14:47] LABS: Alanine Aminotransferase 19 U/L (6-35); Albumin Level 4.4 g/dL (3.5-5.1); Alkaline Phosphatase 94 U/L (38-126); Anion Gap 13 mmol/L (4-12); Aspartate Amino Transferase 31 U/L (14-36); Bilirubin,Total 0.5 mg/dL (0.2-1.3); Blood Urea Nitrogen 22 mg/dL (7-17); Carbon Dioxide 24 mmol/L (22-30); Chloride 104 mmol/L (98-107); Estimated CRCL calculation 53 ml/min; Estimated Glomerular Filt Rate > 60; Glucose 82 mg/dL (65-110); Potassium 4.2 mmol/L (3.4-5.0); Sodium 141 mmol/L (137-145)
[2024-11-29 15:31] VITALS: TEMP 36.7
== END 2024-11-29 16:36 | disposition home or self-care (01) ==
PROVIDERS: Emergency Provider Emergency Medicine; PCP Family Medicine
DX: M48.56XA Collapsed vertebra, not elsewhere classified, lumbar region, initial encounter for fracture (principal); E55.9 Vitamin D deficiency, unspecified; K21.9 Gastro-esophageal reflux disease without esophagitis; M85.80 Other specified disorders of bone density and structure, unspecified site; M19.90 Unspecified osteoarthritis, unspecified site; E78.2 Mixed hyperlipidemia; F41.9 Anxiety disorder, unspecified; Z96.641 Presence of right artificial hip joint; Z87.891 Personal history of nicotine dependence; Z79.899 Other long term (current) drug therapy; M47.816 Spondylosis without myelopathy or radiculopathy, lumbar region
CPT/HCPCS: 36415; 72131; 80053; 81003; 85025; 99284

== ENCOUNTER 2025-02-17 12:45 | Outpatient (CLI) | payer MEDICARE, SELFPAY ==
--- NOTE | ~2025-02-17 | DEXA_ITS ---
Bone Density Report Name: JUAN CARLOS NORTON Age: 69 Sex: Female Ethnicity: White Date of : 1955 Indication: postmenopausal; screening for osteoporosis; prior fracture; Referring Provider: KALIN SAMPSON Study: Bone densitometry was performed. Exam Date: February 17, 2025 Accession number: [id number] Bone Density: Region BMD T-score Z-score Classification AP Spine(L1, L2, L3) 0.943 -0.7 1.4 Normal Femoral Neck (Left) 0.714 -1.2 0.6 Osteopenia Total Hip (Left) 0.829 -0.9 0.6 Normal World Health Organization criteria for BMD impression classify patients as: Normal (T-score at or above -1.0), Osteopenia (T-score between -1.0 and -2.5), or Osteoporosis (T-score at or below -2.5). 10-year Fracture Risk: FRAX not reported because: Prior hip or vertebral fracture Clinical Information Provided by Patient: Have had a previous hip or vertebral fracture Has had a low trauma fracture Has used the following medications: Vitamin D, Calcium Patient maximum height was 64 Menopause Age: 54 No regular weight bearing exercise Does not regularly consume dairy products Drinks caffeinated beverages Onset of menses at age 12 Number of children 3 Impression: The patient has low bone mass, based on the Left Femoral Neck T-score. The patient has risk factors, including: previous fracture. Discussion: INCREASED RISK OF FRACTURE DUE TO HISTORY OF FRACTURE. The patient's previous fracture puts the patient at high risk of a future fracture. In untreated patients, the risk of osteoporotic fracture increases approximately two-fold for each 1.0 SD decrease in T-score. Low bone density is not the only risk factor for fracture; also consider factors such as patient's age, frailty or poor health, risk of falling, risk of injury, previous osteoporotic fracture, family history of osteoporosis, cigarette smoking, low body weight, etc. Not everyone with a low trauma fracture has osteoporosis; osteomalacia and other metabolic bone disorders should also be considered. Patients who have osteoporosis should be evaluated for specific diseases and conditions (secondary causes) that may cause or contribute to bone loss and fracture risk. National Osteoporosis Foundation (NOF) recommends pharmacologic intervention for patients with a prior hip or vertebral fracture regardless of BMD T-score. The patient should follow a healthful lifestyle (good nutrition with adequate calcium and vitamin D, and appropriate weight-bearing exercise). Follow-Up: Consider a repeat BMD and Vertebral Fracture Assessment (VFA) exam in 2 years or sooner if medically necessary, to reassess this patient's status. Reported by: ANDREW on 02/17/2025 1:24:00 PM. Reviewed, dictated and finalized at location AHector SILVA
== END 2025-02-17 12:46 | disposition home or self-care (01) ==
LOC: ANHIMG 12:46
PROVIDERS: PCP Family Medicine; Visit Provider Family Medicine
DX: Z78.0 Asymptomatic menopausal state (principal); M85.852 Other specified disorders of bone density and structure, left thigh
CPT/HCPCS: 77080

== ENCOUNTER 2025-04-28 10:10 | Outpatient (CLI) | payer MEDICARE, SELFPAY ==
[2025-04-28 12:42] LABS: Alanine Aminotransferase 25 U/L (6-35); Albumin Level 4.6 g/dL (3.5-5.1); Alkaline Phosphatase 58 U/L (38-126); Anion Gap 8 mmol/L (4-12); Aspartate Amino Transferase 51 U/L (14-36); Bilirubin,Total 0.5 mg/dL (0.2-1.3); Blood Urea Nitrogen 20 mg/dL (7-17); Carbon Dioxide 27 mmol/L (22-30); Chloride 106 mmol/L (98-107); Estimated Glomerular Filt Rate > 60; Glucose 87 mg/dL (65-110); Potassium 4.2 mmol/L (3.4-5.0); Sodium 141 mmol/L (137-145); Total Protein 7.6 g/dL (6.3-8.2)
[2025-04-28 16:12] LABS: Hemoglobin A1C. 5.7 % (<5.7)
== END 2025-04-28 10:11 | disposition home or self-care (01) ==
LOC: ANHGOSHLAB 10:11
PROVIDERS: PCP Family Medicine; Visit Provider Family Medicine
DX: R73.03 Prediabetes (principal); E78.2 Mixed hyperlipidemia
CPT/HCPCS: 36415; 80053; 83036

== ENCOUNTER 2025-05-07 14:07 | Outpatient (CLI) | payer MEDICARE, SELFPAY ==
--- NOTE | ~2025-05-07 | MM_ITS ---
EXAMINATION: MM screening [place] BI w abel HISTORY: Screening TECHNIQUE: Craniocaudal and mediolateral oblique 3-D tomosynthesis images were obtained and synthetic 2-D images were generated. CAD analysis was submitted and interpreted. COMPARISON: Comparison to multiple prior studies sequentially, with oldest reviewed study dated 08/31. BREAST PARENCHYMAL COMPOSITION: Not Dense: The breasts are almost entirely fatty. FINDINGS: There is no evidence of suspicious mass, calcification, or architectural distortion to sugg est malignancy in either breast. There has been no suspicious interval change. IMPRESSION: 1. No mammographic evidence of malignancy. 2. Recommend routine screening mammography in one year. BI-RADS Category 1: Negative Reviewed, dictated and finalized at location A.
== END 2025-05-07 14:08 | disposition home or self-care (01) ==
LOC: MICIMG 14:08
PROVIDERS: PCP Family Medicine; Visit Provider Family Medicine
DX: Z12.31 Encounter for screening mammogram for malignant neoplasm of breast (principal)
CPT/HCPCS: 77063; 77067

== ENCOUNTER 2025-06-12 09:16 | Outpatient (CLI) | payer MEDICARE, SELFPAY ==
--- NOTE | ~2025-06-12 | CT_ITS ---
CT Scan of the Chest without Contrast: Clinical Indication: Lung cancer screening, nicotine dependence Technique: Contiguous sections were acquired throughout the chest without intravenous contrast. Dose reduction technique was used on this scan by utilizing automated exposure control and iterative recon struction technique. The dose-length product (DLP) was 83.67 mGy-cm. COMPARISON: 01/29/2024 Findings: There is no evidence of any significant mediastinal, hilar or axillary lymphadenopathy. Coronary iraida ry calcifications are present. There is no evidence of pleural or pericardial effusion. Stable small nodules along the right minor fissure. Stable 3 mm right middle lobe nodule. Stable 6 mm right lower lobe nodule. Images through the upper abdomen reveal no abnormalities. Impression: Lung RADS 2: Benign appearance. 12 month follow-up screening CT advised. Reviewed, dictated and finalized at [facility]. Impression: Lung RADS 2: Benign appearance. 12 month follow-up screening CT advised.
== END 2025-06-12 09:17 | disposition home or self-care (01) ==
LOC: MICIMG 09:16
PROVIDERS: PCP Family Medicine; Visit Provider Family Medicine
DX: Z12.2 Encounter for screening for malignant neoplasm of respiratory organs (principal); Z87.891 Personal history of nicotine dependence
CPT/HCPCS: 71271